=== PATIENT | female | born 1965 | race Caucasian/White ===

== ENCOUNTER 2017-03-19 20:57 | Emergency (ER) | payer MEDICAID, OTHER ==
--- NOTE | 2017-03-19 21:10 | EDM.PDOC ---
ED HPI GENERAL MEDICAL PROBLEM - General Chief Complaint: General Stated Complaint: fall, R) ankle deformation Time Seen by Provider: 03/19/17 21:05 Source of Information: Reports: Patient, Old Records ([facility] chart/EMR), Other (Family friend) History Limitations: Reports: Intoxication (Mild to moderate) - History of Present Illness INITIAL COMMENTS - FREE TEXT/NARRATIVE: Patient was brought to the emergency room via private automobile by her friend for evaluation of severe 10/10 right ankle pain, which resulted secondary to a fall at her friend's home at about 20:15. She apparently tripped over a dog leash and heard her bones crack with additional nonspecific mid right anterior tibial discomfort. She denies any head injury, loss of consciousness, headaches , visual changes, change in mental status, nausea/emesis, neck/back pain, paresthesias, neurological deficits, or other complaints or injuries. Her last oral solid intake was at about 15:00 hours this afternoon with the patient admitting to drinking at least 3 mixed drinks and 3 beers shortly prior to arrival. Patient did apply ice packs at home. The patient also denies any recent fever, cough, wheezing, dyspnea, etc.. Onset: Today, Sudden Onset Date: 03/19/17 Onset Time: 20:15 Duration: Constant Location: Reports: Lower Extremity, Right. Denies: Head, Face, Neck, Chest, Abdomen, Back, Pelvis, Upper Extremity, Left, Upper Extremity, Right, Lower Extremity, Left, Radiates to Quality: Reports: Ache, Sharp, Stabbing Severity: Severe Improves with: Reports: Rest Worsens with: Reports: Movement Context: Reports: Trauma (As above) Associated Symptoms: Denies: Confusion, Chest Pain, Cough, cough w sputum, Diaphoresis, Fever/Chills, Headaches, Loss of Appetite, Nausea/Vomiting, Rash, Seizure, Shortness of Breath, Syncope, Weakness Treatments WINCH RUNNER: Reports: Cold Therapy, Other (see below) Other Treatments WINCH RUNNER: elevation of extremity Right Ankle Pain Score (Numeric/FACES): 10 - Related Data Allergies Allergy/AdvReac Type Severity Reaction Status Date / Time No Known Allergies Allergy Verified 09/30/13 11:49 Home Meds: Home Meds Omeprazole 20 mg PO DAILY 03/19/17 [History] clonazePAM [Clonazepam] 1 mg PO DAILY 03/19/17 [History] Past Medical History HEENT History: Reports: Allergic Rhinitis. Denies: Cataract, Glaucoma, Hard of Hearing, Impaired Vision, Macular Degeneration, Retinal Detachment Cardiovascular History: Reports: Hypertension, Other (See Below). Denies: Afib , Aneurysm, Arrhythmia, Blood Clots/VTE/DVT, CAD, Heart Failure, Heart Murmur, High Cholesterol, [place], Syncope Other Cardiovascular History: Hypertension not currently treated, patient is uncertain about her cholesterol status Respiratory History: Reports: None, Bronchitis, Recurrent, COPD, Pneumonia, Recurrent, Other (See Below). Denies: Asthma, Intubation, Previous, PE, Pneumothorax, Sleep Apnea Other Respiratory History: COPD by physical exam likely secondary to tobacco use Gastrointestinal History: Reports: Gastritis, GI Bleed, Hepatitis, PUD, Other ( See Below). Denies: Celiac Disease, Cholelithiasis, Chronic Constipation, Chronic Diarrhea, GERD, Hiatal Hernia, Inflammatory Bowel Disease, Irritable Bowel Syndrome, Jaundice, Pancreatitis Other Gastrointestinal History: History of gastric ulcer in her 20s, history of LFTs elevation Genitourinary History: Reports: None. Denies: Acute Renal Failure, Chronic Renal Insuffiency, Renal Calculus, Retention, Urinary, STD, Urinary Incontinence , UTI, Recurrent PREPRESS SPECIALIST History: Reports: . Denies: Dysfunctional Uterine Bleeding, Endometriosis, Fibroids, PID, Spontaneous : 2 Para: 2 LMP (Approximate): Menopausal (Since age 31) Musculoskeletal History: Reports: Arthritis, Back Pain, Chronic, Fracture, Osteoarthritis, Other (See Below). Denies: Amputation, Gout, Neck Pain, Chronic , RA, SLE Other Musculoskeletal History: Left shoulder fracture in about 2013, scoliosis Neurological History: Reports: None. Denies: Alzheimers Disease, Cerebral Aneurysms, Concussion, CVA, Headaches, Chronic, Head Trauma, Migraines, MS, Parkinson's, Seizure, TIA Psychiatric History: Reports: Anxiety, Depression, Panic Attack. Denies: Abuse , Victim of, ADD, ADHD, Addiction, Psych Hospitalization(s), PTSD, Suicide Attempt, Suicidal Ideation Endocrine/Metabolic History: Denies: Diabetes, Type I, Diabetes, Type II, Hypothyroidism, IDDM Hematologic History: Denies: Anemia, Blood Transfusion(s), Iron Deficiency Immunologic History: Denies: AIDS, HIV, SLE Oncologic (Cancer) History: Reports: None. Denies: Basal Cell Carcinoma, Cervix , Hodgkin's Lymphoma, Lymphoma, Malignant Melanoma, Non-Hodgkin's Lymphoma, Squamous Cell Carcinoma Dermatologic History: Reports: None. Denies: Eczema, Psoriasis - Infectious Disease History Infectious Disease History: Reports: Chicken Pox. Denies: C-Difficile, Hepatitis B, Hepatitis C, Hepatitis non A,B,C, Measles, Meningitis, Mononucleosis, MRSA, Mumps, Pertussis (Whooping Cough), Rheumatic Fever, Rubella , Scarlet Fever, Shingles, VRE - Past Surgical History Head Surgeries/Procedures: Reports: None HEENT Surgical History: Reports: Adenoidectomy, Oral Surgery, Tonsillectomy, Other (See Below). Denies: Eye Surgery, Laser Surgery, LASIK, Myringotomy w Tube(s), Naso-Sinus Surgery Other HEENT Surgeries/Procedures: Tonsillectomy and adenoidectomy at about age 11, Boring teeth extraction 4 at age 25 Cardiovascular Surgical History: Reports: None. Denies: Varicose, Vascular Surgery Respiratory Surgical History: Reports: None. Denies: Lung Biopsies, Thoracentesis GI Surgical History: Reports: None. Denies: Appendectomy, Cholecystectomy, Colonoscopy, EGD, Hernia, Abdominal, Hernia, Inguinal, Hernia Repair/Other Female Surgical History: Reports: Breast Biopsy. Denies: Section, D &C, Hysterectomy, Tubal Ligation Endocrine Surgical History: Reports: None. Denies: Thyroid Biopsy Neurological Surgical History: Reports: None. Denies: C-Spine, Discectomy, Laminectomy, Lumbar Spine, Spinal Fusion, Vertebroplasty Musculoskeletal Surgical History: Reports: None. Denies: Arthroscopic Procedure , Carpal Tunnel, Ganglion Cyst, Joint Replacement, ORIF, Shoulder Surgery Oncologic Surgical History: Reports: None Dermatological Surgical History: Reports: None - Past Imaging History Past Imaging History: Reports: None Social & Family History - Tobacco Use Smoking Status *Q: Current Every Day Smoker Tobacco Use Within Last Twelve Months: Cigarettes Years of Tobacco use: 35 (Started at age 16) Packs/Tins Daily: 1.5 (Maximum use 2 packs per day) Smoking Cessation Information Provided To Patient: Yes Second Hand Smoke Exposure: Yes Source of Second Hand Smoke Exposure: Boyfriend smokes Second Hand Smoke Education Provided: Yes - Caffeine Use Caffeine Use: Reports: Soda (1 soda per day). Denies: Coffee, Energy Drinks, Tea - Alcohol Use Alcohol Use History: Yes Days Per Week of Alcohol Use: 7 (No previous DWIs, problems with alcohol abuse, etc.) Number of Drinks Per Day: 3 (Usually beer or mixed drinks) Total Drinks Per Week: 21 Date of Last Drink: 03/19/17 Time of Last Drink: 20:15 Alcohol Use in Last Twelve Months: Yes - Recreational Drug Use Recreational Drug Use: Yes Drug Use in Last 12 Months: Yes Recreational Drug Type: Reports: Marijuana/Hashish (One half joint once week starting at age 16). 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 Denies: Fever, Chills, Weakness, Fatigue , Night Sweats, Diaphoresis, Decreased Appetite, Weight Loss, Weight Gain HEENT: Reports: No Symptoms. Denies: Contact Lenses, Dental Pain, Ear Discharge , Ear Pain, Eye Pain, Glasses, Hearing Loss, Rhinitis, Throat Pain, Throat Swelling, Vertigo, Vision Change Respiratory: Reports: No Symptoms. Denies: Shortness of Breath, Wheezing, Pleuritic Chest Pain, Cough Cardiovascular: Reports: No Symptoms. Denies: Chest Pain, Blood Pressure Problem, Claudication, Dyspnea on Exertion, Edema, Lightheadedness, Orthopnea, Palpitations, PND, Syncope Endocrine: Reports: No Symptoms. Denies: Fatigue GI/Abdominal: Reports: No Symptoms. Denies: Abdominal Pain, Anorexia, Black Stool, Bloody Stool, Constipation, Diarrhea, Decreased Appetite, Difficulty Swallowing, Distension, Flatus, Hematemesis, Hematochezia, Melena, Nausea, Stool Incontinence, Vomiting : Reports: No Symptoms. Denies: Discharge, Dysuria, Flank Pain, Frequency, Hematuria, Incontinence, Pain, Urgency, Urinary Retention Musculoskeletal: Reports: Leg Pain (Right lower leg pain), Joint Pain (Right ankle), Joint Swelling (Right ankle). Denies: Neck Pain, Shoulder Pain, Arm Pain, Back Pain, Muscle Pain, Muscle Stiffness Skin: Reports: No Symptoms. Denies: Diaphoresis, Wound Neurological: Reports: No Symptoms, Difficulty Walking (Secondary to ankle fracture). Denies: Confusion, Dizziness, Headache, Numbness, Paresthesia, Seizure, Syncope, Tingling, Trouble Speaking, Weakness, Change in Speech Psychiatric: Denies: Agitation, Anxiety, Confusion ED EXAM, GENERAL - Physical Exam Exam: See Below Exam Limited By: No Limitations General Appearance: Alert, WD/WN, No Apparent Distress, Anxious (Mild), Other ( [id number] intoxication) Head: Atraumatic, Normocephalic. No: Facial Swelling, Facial Tenderness, Sinus Tenderness Neck: Normal Inspection, Supple, Non-Tender, Full Range of Motion. No: Carotid Bruit, Lymphadenopathy (L), Lymphadenopathy (R), Thyromegaly Respiratory/Chest: No Accessory Muscle Use, Chest Non-Tender, Rhonchi (Mild to moderate diffuse bilateral), Wheezing (Mild to moderate diffuse bilateral). No : Rales, Stridor, Retractions Cardiovascular: Normal Peripheral Pulses, Regular Rate, Rhythm, No Edema, No Gallop, No JVD, No Murmur, No Rub. No: Gallop/S3, Gallop/S4, Friction Rub Peripheral Pulses: 4+: Radial (L), Radial (R), Dorsalis Pedis (L), Dorsalis Pedis (R) GI/Abdominal: Normal Bowel Sounds, Soft, Non-Tender, No Organomegaly, No Distention, No Abnormal Bruit, No Mass. No: Guarding (Female) Exam: Deferred Rectal (Female) Exam: Deferred Back Exam: Normal Inspection, Full Range of Motion. No: CVA Tenderness (L), CVA Tenderness (R), Muscle Spasm Extremities: No Pedal Edema, Normal Capillary Refill, Joint Swelling (Moderate right ankle effusion and deformities), Limited Range of Motion (Moderate localized palpation pain over the right ankle with unstable joint). No: Scotty' s Sign Neurological: Alert, Oriented, CN II-XII Intact, Normal Cognition, Normal Gait, Normal Reflexes (Negative Babinski's), No Motor/Sensory Deficits, Other (Mild to moderate intoxication) Psychiatric: Anxious (Mild), Depressed Mood (Borderline) Skin Exam: Warm, Dry, Intact, Normal Color, No Rash, Tattoo(s). No: Diaphoretic , Wound/Incision Lymphatic: No Adenopathy ED GENERAL MEDICAL PROCEDURES - Splinting Right Lower Extremity Pre-procedure NV status: Normal Post-procedure NV status: Normal Splint Material: Other (one 6" x 30" padded preformed fiberglass splint with an additional 4" x 2 15 inch similar splint secured with 2 six-inch Kwasi wraps) Splint Design: Stirrup, Posterior Applied & Form Fitted By: Provider Provider Post-Splint Application NV Check: NV Status Normal, Good Position Complications: No Course - Vital Signs Last Recorded V/S: Last Vital Signs Temp 37.2 C 03/19/17 21:04 Pulse 106 H 03/19/17 21:04 Resp 18 03/19/17 21:04 BP 130/75 03/19/17 21:42 Pulse Ox 98 03/19/17 21:04 Vital Signs - 24 hr 03/19/17 03/19/17 21:04 21:42 Temperature [ 37.2 C Temporal] Pulse, 106 H Peripheral [ Right Pulse Oximetry] Respiratory 18 Rate Blood Pressure 161/103 H 130/75 [Right Upper Arm] O2 Sat by Pulse 98 Oximetry - Orders/Labs/Meds Orders: Active Orders 24 hr Category Date Time Status Ankle Min 3V Rt [CR] Stat Exams 03/19/17 21:13 Taken Tibia Fibula Rt [CR] Stat Exams 03/19/17 21:12 Taken Durable Medical Equipment for Discharge [DME for Oth 03/19/17 22:09 Ordered Discharge] [COMM] Routine Obtain Past Medical Record [OM.PC] Routine Oth 03/19/17 21:12 Active Labs: Laboratory Tests 03/19/17 03/19/17 03/19/17 Range/Units 21:20 21:20 21:20 WBC 6.3 (4.0-10.2) K/uL RBC 4.57 (3.77-5.09) M/uL Hgb 14.6 D (11.7-15.5) g/dL Hct 42.6 (34.0-46.0) % MCV 93.2 (84.0-98.0) fL MCH 31.9 (28.2-33.3) pg MCHC 34.3 (31.7-36.0) g/dL RDW 11.5 (11.2-14.1) % Plt Count 116 L (150-350) K/uL Neut % (Auto) 50.2 (45.0-80.0) % Lymph % (Auto) 38.2 (10.0-50.0) % [place] % (Auto) 9.4 (2.0-14.0) % Eos % (Auto) 1.4 (0.0-5.0) % Baso % (Auto) 0.8 (0.0-2.0) % Neut # (Auto) 3.14 (1.40-7.00) K/uL Lymph # (Auto) 2.39 (0.50-3.50) K/uL [place] # (Auto) 0.59 (0.00-1.00) K/uL Eos # (Auto) 0.09 (0.00-0.50) K/uL Baso # (Auto) 0.05 (0.00-0.20) K/uL PT (9.8-11.7) SEC INR APTT (23.5-30.0) SEC Sodium 135 L (136-145) mmol/L Potassium 3.5 (3.5-5.1) mmol/L Chloride 100 (98-107) mmol/L Carbon Dioxide 26.6 (21.0-32.0) mmol/L BUN 10 (7-18) mg/dL Creatinine 0.65 (0.51-1.17) mg/dL Est Cr Clr Drug Dosing 96.93 mL/min Estimated GFR (MDRD) > 60 mL/min Glucose 88 (74-106) mg/dL Lactic Acid (0.4-2.0) mmol/L Calcium 8.6 (8.5-10.1) mg/dL Total Bilirubin 0.2 (0.2-1.0) mg/dL AST 25 (15-37) U/L ALT 35 (12-78) U/L Alkaline Phosphatase 91 (46-116) IU/L Total Protein 7.3 (6.4-8.2) g/dL Albumin 3.6 (3.4-5.0) g/dL Ethyl Alcohol 0.142 H (0.000-0.080) g/dL 03/19/17 03/19/17 Range/Units 21:20 21:20 WBC (4.0-10.2) K/uL RBC (3.77-5.09) M/uL Hgb (11.7-15.5) g/dL Hct (34.0-46.0) % MCV (84.0-98.0) fL MCH (28.2-33.3) pg MCHC (31.7-36.0) g/dL RDW (11.2-14.1) % Plt Count (150-350) K/uL Neut % (Auto) (45.0-80.0) % Lymph % (Auto) (10.0-50.0) % [place] % (Auto) (2.0-14.0) % Eos % (Auto) (0.0-5.0) % Baso % (Auto) (0.0-2.0) % Neut # (Auto) (1.40-7.00) K/uL Lymph # (Auto) (0.50-3.50) K/uL [place] # (Auto) (0.00-1.00) K/uL Eos # (Auto) (0.00-0.50) K/uL Baso # (Auto) (0.00-0.20) K/uL PT 10.8 (9.8-11.7) SEC INR 1.0 APTT 24.8 (23.5-30.0) SEC Sodium (136-145) mmol/L Potassium (3.5-5.1) mmol/L Chloride (98-107) mmol/L Carbon Dioxide (21.0-32.0) mmol/L BUN (7-18) mg/dL Creatinine (0.51-1.17) mg/dL Est Cr Clr Drug Dosing mL/min Estimated GFR (MDRD) mL/min Glucose (74-106) mg/dL Lactic Acid 2.3 H (0.4-2.0) mmol/L Calcium (8.5-10.1) mg/dL Total Bilirubin (0.2-1.0) mg/dL AST (15-37) U/L ALT (12-78) U/L Alkaline Phosphatase (46-116) IU/L Total Protein (6.4-8.2) g/dL Albumin (3.4-5.0) g/dL Ethyl Alcohol (0.000-0.080) g/dL Meds: Medications Discontinued Medications Generic Name Dose Route Start Last Admin Trade Name Freq PRN Reason Stop Dose Admin Meperidine HCl 50 mg 03/19/17 21:13 03/19/17 21:34 Demerol IM 03/19/17 21:14 50 mg ONETIME ONE Administration Promethazine HCl 50 mg 03/19/17 21:14 03/19/17 21:33 Phenergan IM 03/19/17 21:15 50 mg ONETIME ONE Administration - Radiology Interpretation Free Text/Narrative:: X-rays of the right tibia and fibula, 2 views, shows evidence of ankle fracture , however no evidence of midshaft fractures X-rays of the right ankle, 3 views, shows evidence of moderately angulated and displaced trimalleolar fracture affecting the ankle mortise with additional 2 nonspecific cystic lesions over the distal aspect of the distal tibia Departure - Departure Time of Disposition: 22:25 Disposition: DC/Tfer to [facility] 02 Condition: good Clinical Impression: Intoxication, Tobacco abuse counseling, Peptic ulcer disease, Lactic acid increased, Mixed anxiety depressive disorder, Illicit drug use, continuous, LFT elevation Trimalleolar fracture of right ankle Qualifiers: Encounter type: initial encounter Fracture type: closed Qualified Code(s): S82.851A - Displaced trimalleolar fracture of right lower leg, initial encounter for closed fracture COPD (chronic obstructive pulmonary disease) Qualifiers: COPD type: emphysema Emphysema type: panlobular Qualified Code(s): J43.1 - Panlobular emphysema Osteoarthritis Qualifiers: Osteoarthritis location: multiple joints Osteoarthritis type: primary Qualified Code(s): M15.0 - Primary generalized (osteo)arthritis Hypertension Qualifiers: Hypertension type: essential hypertension Qualified Code(s): I10 - Essential ( primary) hypertension - Discharge Information Instructions: Cast or Splint Care, [id number], Ankle Fracture, Chronic Obstructive Pulmonary Disease, [id number] Forms: ED Department Discharge, Interfacility Transfer JOAQUIN Additional Instructions: 1. Have a friend or family member drive you to the [facility] in [place] ERNIE with strict nothing to eat or drink until otherwise directed by accepting physician 2. Stop all tobacco use ERNIE as directed/per provided information and consider contacting [employer]uit LIne, etc.. 3. Leg elevation and ice packs during transfer - Problem List & Annotations (1) Trimalleolar fracture of right ankle SNOMED Code(s): 741623402 Code(s): S82.851A - DISPLACED TRIMALLEOLAR FRACTURE OF RIGHT LOWER LEG, INIT Status: Acute Priority: High Onset Date: 03/19/17 Annotation/Comment:: Telephone consultation initially with Dr. Luz, orthopedic surgeon at [facility], at 20:40 hours, who agrees to evaluate and admit the patient for probable right ankle surgery, however he wishes that the patient be admitted through the hospitalist secondary to the patient's very limited previous medical care. Subsequent telephone consultation at 20:[address] Layne, hospitalist, who does accept the patient for direct admission. No further treatment recommendations given. She was placed in a short leg posterior plantar splint with stirrup with crutches already provided. Private transport ERNIE as per discharge instructions. Qualifiers: Encounter type: initial encounter Fracture type: closed Qualified Code(s) : S82.851A - Displaced trimalleolar fracture of right lower leg, initial encounter for closed fracture (2) Lactic acid increased SNOMED Code(s): 82583638 Code(s): E87.2 - ACIDOSIS Status: Acute Priority: High Onset Date: 04/28 Annotation/Comment:: No clinical evidence of sepsis or acidosis. Consider repeated lactic acid level in 6 hours (3) COPD (chronic obstructive pulmonary disease) SNOMED Code(s): 61474908 Code(s): J44.9 - CHRONIC OBSTRUCTIVE PULMONARY DISEASE, UNSPECIFIED Status : Chronic Priority: Medium Annotation/Comment:: Probable moderate COPD by clinical exam with no recent history of fever or bronchitic type symptoms. Patient would benefit from tobacco cessation and possible PFTs Qualifiers: COPD type: emphysema Emphysema type: panlobular Qualified Code(s): J43.1 - Panlobular emphysema (4) Osteoarthritis SNOMED Code(s): 468485708 Code(s): M19.90 - UNSPECIFIED OSTEOARTHRITIS, UNSPECIFIED SITE Status: Chronic Priority: Medium Annotation/Comment:: Otherwise stable by history Qualifiers: Osteoarthritis location: multiple joints Osteoarthritis type: primary Qualified Code(s): M15.0 - Primary generalized (osteo)arthritis (5) Hypertension SNOMED Code(s): 10051979 Code(s): I10 - ESSENTIAL (PRIMARY) HYPERTENSION Status: Chronic Priority : Medium Annotation/Comment:: Long history of apparent hypertension with no previous medical therapy. Blood pressure improved prior to transfer with no medical treatment other than pain medications as above. Continue to observe closely by accepting physicians with update of routine healthcare advisable Qualifiers: Hypertension type: essential hypertension Qualified Code(s): I10 - Essential (primary) hypertension (6) Intoxication SNOMED Code(s): 33722994 Code(s): TYZ8326 - Status: Acute Priority: High Onset Date: 03/19/17 Annotation/Comment:: Mild to moderate intoxication today. Based on clinical impression possible history of alcohol abuse with additional marijuana abuse as below. Note history of previous LFTs elevation of unknown etiology possibly secondary to her alcohol use versus fatty liver. Coagulation studies were normal today with only mild thrombocytopenia noted (7) Tobacco abuse counseling SNOMED Code(s): 274689424, 595389035, 155653674 Code(s): Z71.6 - TOBACCO ABUSE COUNSELING Status: Chronic Priority: Medium Annotation/Comment:: Tobacco cessation strongly encouraged with patient not interested in having information (8) Peptic ulcer disease SNOMED Code(s): 70608706 Code(s): K27.9 - PEPTIC ULC, SITE UNSP, UNSP AC OR CHR, W/O HEMOR OR PERF Status: Chronic Priority: Medium Annotation/Comment:: Stable with current Prilosec therapy (9) Mixed anxiety depressive disorder SNOMED Code(s): 272732357 Code(s): F41.8 - OTHER SPECIFIED ANXIETY DISORDERS Status: Chronic Priority: Medium Annotation/Comment:: Stable by patient history (10) Illicit drug use, continuous SNOMED Code(s): 030872561 Code(s): F19.90 - OTHER PSYCHOACTIVE SUBSTANCE USE, UNSPECIFIED, UNCOMPLICATED Status: Chronic Priority: Medium Annotation/Comment:: Discontinuation of illicit drug use recommended initially in light of her probable COPD and anxiety depression disorder (11) LFT elevation SNOMED Code(s): 602909741 Code(s): R79.89 - OTHER SPECIFIED ABNORMAL FINDINGS OF BLOOD CHEMISTRY Status: Chronic Priority: Medium Current Visit: Yes Annotation/Comment:: LFTs are normal today although history of distant LFTs elevation as above - Problem List Review Problem List Initiated/Reviewed/Updated: Yes - My Orders Last 24 Hours: My Active Orders 03/19/17 21:12 Tibia Fibula Rt [CR] Stat Obtain Past Medical Record [OM.PC] Routine 03/19/17 21:13 Ankle Min 3V Rt [CR] Stat 03/19/17 22:09 Durable Medical Equipment for Discharge [DME for Discharge] [COMM] Routine - Assessment/Plan Last 24 Hours: My Active Orders 03/19/17 21:12 Tibia Fibula Rt [CR] Stat Obtain Past Medical Record [OM.PC] Routine 03/19/17 21:13 Ankle Min 3V Rt [CR] Stat 03/19/17 22:09 Durable Medical Equipment for Discharge [DME for Discharge] [COMM] Routine Assessment:: As above Plan: As above. Extensive precautions were given to the patient and her friend, who are in agreement with the treatment plan. See Patient Instructions for further treatment and plan.
[2017-03-19] MEDS ORDERED: Meperidine PF 50 MG/ML Syringe IM ONE (21:13)
[2017-03-19] MEDS ORDERED: Promethazine 25 MG/ML SDV IM ONE (21:14)
[2017-03-19 21:40] LABS: CHLORIDE,CL 100 mmol/L (98-107); SODIUM,NA 135 mmol/L (136-145)
[2017-03-19 21:42] VITALS: BP 130/75
== END 2017-03-19 22:30 ==
LOC: LL.ED 20:57
DX: S82.851A Displaced trimalleolar fracture of right lower leg, initial encounter for closed fracture (principal); J43.1 Panlobular emphysema; M15.0 Primary generalized (osteo)arthritis; I10 Essential (primary) hypertension; F41.8 Other specified anxiety disorders; F19.90 Other psychoactive substance use, unspecified, uncomplicated; R79.89 Other specified abnormal findings of blood chemistry; Z71.6 Tobacco abuse counseling; F17.210 Nicotine dependence, cigarettes, uncomplicated; Z98.890 Other specified postprocedural states; Z79.899 Other long term (current) drug therapy; W01.0XXA Fall on same level from slipping, tripping and stumbling without subsequent striking against object, initial encounter
CPT/HCPCS: 29515; 36415; 73590; 73610; 80053; 83605; 85025; 85610; 85730; 96372; 99285; G0480; J2175; J2550

== ENCOUNTER 2018-05-28 08:30 | Day surgery (SDC) | payer MEDICAID ==
[~2018-05-28 08:30] MED LIST: Lactated Ringers 1,000 ML IV SCH; Sodium Chloride 0.9% 10 ML Syringe FLUSH PRN
[2018-05-28] MEDS ORDERED: Lactated Ringers 1,000 ML IV SCH (11:00)
[2018-05-28] MEDS ORDERED: Sodium Chloride 0.9% 10 ML Syringe FLUSH PRN (11:00)
--- NOTE | 2018-05-28 12:52 | PCM.PN ---
- General Info Date of Service: 05/28/18 - Review of Systems Systems Review Comment:: 53-year-old female referred for her initial screening colonoscopy. She is medically stable to proceed today. There is been no recent change in her health status or significant change from her recent history and physical. I discussed the proposed colonoscopy. Risks such as but not limited to bleeding and GI injury reviewed.She appears to understand and agrees to proceed. - Patient Data Vitals - Most Recent: Last Vital Signs Temp 97.6 F 05/28/18 11:48 Pulse 77 05/28/18 11:48 Resp 18 05/28/18 11:48 BP 180/122 H 05/28/18 11:48 Pulse Ox 95 05/28/18 11:48 Weight - Most Recent: 68.152 kg Med Orders - Current: Current Medications Lactated Ringer's (Ringers, Lactated) 1,000 mls @ 125 mls/hr IV ASDIRECTED DAVIDSON Sodium Chloride (Saline Flush) 10 ml FLUSH ASDIRECTED PRN PRN Reason: Keep Vein Open - Problem List Review Problem List Initiated/Reviewed/Updated: Yes - My Orders Last 24 Hours: My Active Orders 05/28/18 11:00 Patient Status [ADT] Routine Peripheral IV Care [RC] . DIRECTED Verify Patient Consent Obtain [RC] ASDIRECTED Lactated Ringers [Ringers, Lactated] 1,000 ml IV ASDIRECTED Sodium Chloride 0.9% [Saline Flush] 10 ml FLUSH ASDIRECTED PRN Peripheral IV Insertion Adult [OM.PC] Routine - Assessment Assessment:: colon cancer screening - Plan Plan:: colonoscopy
[2018-05-28] MEDS ORDERED: fentaNYL 100 MCG/2 ML SDV ONE (12:57)
[2018-05-28] MEDS ORDERED: Midazolam 1 MG/ML 2 ML SDV ONE (12:57)
[2018-05-28] MEDS ORDERED: Propofol 200 MG/20 ML SDV ONE (12:58)
--- NOTE | 2018-05-28 13:44 | PCM.OPNOTE ---
- General Post-Op/Procedure Note Date of Surgery/Procedure: 05/28/18 Operative Procedure(s): colonoscopy with polypectomy and fulguration Findings: small colon polyps Pre Op Diagnosis: colon cancer screening Post-Op Diagnosis: colon polyps Anesthesia Technique: MAC Primary Surgeon: Venancio Moralez Pathology: sigmoid colon polyp Output, Urine Amount: 0 EBL in mLs: 0 Complications: None Condition: Good
[2018-05-28 19:32] VITALS: BP 173/97
--- NOTE | 2018-05-29 11:30 | OR ---
Date of Procedure: 05/28/2018 REFERRING PROVIDER: Mirna Weston PA-C PREOPERATIVE DIAGNOSIS: Colon cancer screening. POSTOPERATIVE DIAGNOSIS: Colon polyps. OPERATIONS PERFORMED: Colonoscopy with polypectomy and fulguration. INDICATIONS FOR SURGERY: This 53-year-old female is seen today for her initial screening colonoscopy. She denies any close relatives with known colon cancer and also denies any recent change in bowel pattern. FINDINGS: During the exam, 2 polyps were noted. There was a 7-mm sessile polyp noted in the sigmoid colon, 20 cm from the anal verge, and a 3-mm polyp in the transverse colon. The remainder of the colon appeared normal. DESCRIPTION OF PROCEDURE: The patient was taken to the operating room. She was given intravenous sedation, and with her in the left lateral decubitus position, digital rectal exam was performed showing no rectal masses. The Olympus colonoscope was inserted into the rectum. Retroflexed examination of the rectal canal was performed. The scope was advanced to the sigmoid region with the above-described polyp was identified and it was removed with a cautery snare and retrieved into a polyp trap. The scope was then further advanced through the entire length of the colon until the cecum was reached. Cecal acquisition was confirmed by noting the normal internal cecal anatomy including the appendiceal orifice and ileocecal valve. The light was also noted to transilluminate the abdominal wall in the right lower quadrant. After examining the cecum, the scope was slowly withdrawn sequentially re-examining the colonic segments. In the transverse colon, another very small polyp was identified and this was destroyed with fulguration using the cautery snare. The scope was further withdrawn until the entire colon and rectum had been fully examined. The scope was removed and the patient was taken from the operating room in satisfactory condition. ESTIMATED BLOOD LOSS: Zero. COMPLICATIONS: None. PROGNOSIS: Good. ABIGAIL Moralez MD /[id number]
== END 2018-05-28 14:48 | disposition home or self-care (01) ==
LOC: LL.SDS 08:30
PROVIDERS: ATTEND Surgery
DX: Z12.11 Encounter for screening for malignant neoplasm of colon (principal); D12.5 Benign neoplasm of sigmoid colon; K63.5 Polyp of colon; I10 Essential (primary) hypertension; G47.00 Insomnia, unspecified; E78.2 Mixed hyperlipidemia; K29.70 Gastritis, unspecified, without bleeding; F41.8 Other specified anxiety disorders; Z79.899 Other long term (current) drug therapy
CPT/HCPCS: J2250; J2704; J3010

== ENCOUNTER 2020-07-26 11:12 | Emergency (ER) | payer MEDICAID ==
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
[2020-07-26] MEDS: Bacitracin/Neomycin/Polymyxin B Oint 0.9 GM U/D Packet TOP ONE (11:44)
[2020-07-26] MEDS: Diphtheria,Pertussis(Acell),Tetanus Vaccine 0.5 ML Syringe IM ONE (11:46)
[2020-07-26] MEDS: FLU Vacc QS2020-21 36MOS UP/PF 60 MCG/0.5 ML Syringe IM ONE (11:46)
[2020-07-26 11:50] VITALS: BP 113/71; PULSE 71
== END 2020-07-26 13:33 | disposition home or self-care (01) ==
LOC: LL.ED 11:12
DX: S01.311A Laceration without foreign body of right ear, initial encounter (principal); F41.8 Other specified anxiety disorders; Z71.6 Tobacco abuse counseling; F17.210 Nicotine dependence, cigarettes, uncomplicated; F10.129 Alcohol abuse with intoxication, unspecified; M19.90 Unspecified osteoarthritis, unspecified site; E78.5 Hyperlipidemia, unspecified; J43.1 Panlobular emphysema; I10 Essential (primary) hypertension; J44.9 Chronic obstructive pulmonary disease, unspecified; K21.9 Gastro-esophageal reflux disease without esophagitis; F41.9 Anxiety disorder, unspecified; F32.9 Major depressive disorder, single episode, unspecified; Z91.013 Allergy to seafood; Z23 Encounter for immunization; W01.0XXA Fall on same level from slipping, tripping and stumbling without subsequent striking against object, initial encounter; Y92.009 Unspecified place in unspecified non-institutional (private) residence as the place of occurrence of the external cause
CPT/HCPCS: 12013; 90471; 90686; 90715; 99283-25; G0008; J2001

== ENCOUNTER 2023-07-20 15:04 | Emergency (ER) | payer MEDICAID ==
[2023-07-20] MEDS ORDERED: Acetaminophen/oxyCODONE 325-5 MG Tab PO ONE (15:30)
[2023-07-20] MEDS ORDERED: Take Home: Acetaminophen/HYDROcodone 325-10 MG, 5 Tab Pack PO ONE (16:07)
[2023-07-20 16:20] VITALS: BP 120/84; PULSE 74
== END 2023-07-20 16:35 | disposition home or self-care (01) ==
LOC: LL.ED 15:04
DX: S49.002A Unspecified physeal fracture of upper end of humerus, left arm, initial encounter for closed fracture (principal); F17.210 Nicotine dependence, cigarettes, uncomplicated; J44.9 Chronic obstructive pulmonary disease, unspecified; I10 Essential (primary) hypertension; K21.9 Gastro-esophageal reflux disease without esophagitis; Z79.899 Other long term (current) drug therapy; Z91.048 Other nonmedicinal substance allergy status; W06.XXXA Fall from bed, initial encounter
CPT/HCPCS: 73030-LT; 99283; 99284; A9270-GY

== ENCOUNTER 2024-12-07 11:02 | Emergency (ER) | payer MEDICAID ==
[2024-12-07 11:08] VITALS: BP 162/95; PULSE 82
[2024-12-07 11:23] LABS: BASOPHILS ABSOLUTE AUTO 0.02 K/uL (0.00-0.20); BASOPHILS PERCENT AUTO 0.2 % (0.0-2.0); EOSINOPHILS ABSOLUTE AUTO 0.06 K/uL (0.00-0.50); EOSINOPHILS PERCENT AUTO 0.5 % (0.0-5.0); HEMATOCRIT 43.9 % (34.0-46.0); HEMOGLOBIN 15.3 g/dL (11.7-15.5); IMMATURE GRAN ABSOLUTE AUTO 0.01 10^3/uL (0.00-0.04); IMMATURE GRAN PERCENT AUTO 0.1 % (0.0-0.4); LYMPHOCYTES ABSOLUTE AUTO 3.07 K/uL (0.50-3.50); LYMPHOCYTES PERCENT AUTO 27.8 % (10.0-50.0); MEAN CORPUSCULAR HEMOGLOBIN 30.7 pg (28.2-33.3); MEAN CORPUSCULAR HGB CONC 34.9 g/dL (31.7-36.0); MEAN CORPUSCULAR VOLUME 88.2 fL (84.0-98.0); MONOCYTES PERCENT AUTO 10.9 % (2.0-14.0); NEUTROPHILS ABSOLUTE AUTO 6.69 K/uL (1.40-7.00); NEUTROPHILS PERCENT AUTO 60.5 % (45.0-80.0); PLATELET COUNT,PLT 190 K/uL (150-350); RED BLOOD CELL COUNT 4.98 M/uL (3.77-5.09); RED CELL DISTRIBUTION WIDTH 11.7 % (11.2-14.1); WHITE BLOOD CELL COUNT,WBC 11.1 K/uL (4.0-10.2)
[2024-12-07 11:47] LABS: ALANINE AMINOTRANSFERASE,ALT 38 U/L (12-78); ALBUMIN 4.1 g/dL (3.4-5.0); ALKALINE PHOSPHATASE 154 IU/L (46-116); ANION GAP 11.7 meq/L (7-15); ASPARTATE AMNIOTRANSFERASE,AST 34 U/L (15-37); BILIRUBIN TOTAL 0.6 mg/dL (0.2-1.0); BLOOD UREA NITROGEN,BUN 11 mg/dL (7-18); CALCIUM 9.4 mg/dL (8.5-10.1); CARBON DIOXIDE,CO2 27.3 mmol/L (21.0-32.0); CHLORIDE,CL 100 mmol/L (98-107); CREATININE 1.01 mg/dL (0.51-1.17); ETHANOL BLOOD MEDICAL 0.003 g/dL (0.000-0.080); GLUCOSE RANDOM 124 mg/dL (70-99); POTASSIUM,K 4.2 mmol/L (3.5-5.1); PROTEIN TOTAL,TP 7.9 g/dL (6.4-8.2); SODIUM,NA 139 mmol/L (136-145)
[2024-12-07 11:49] LABS: ESTIMATED GFR 65 mL/min (>=60)
[2024-12-07] MEDS: traMADol 50 MG Tab PO ONE (12:02)
[2024-12-07 12:16] LABS: APPEARANCE,URINE SLIGHTLY CLOUDY; BILIRUBIN,URINE NEGATIVE (NEGATIVE); COLOR,URINE YELLOW; GLUCOSE,URINE NEGATIVE (NEGATIVE); KETONES,URINE NEGATIVE (NEGATIVE); LEUKOCYTE ESTERASE,URINE TRACE (NEGATIVE); NITRITE,URINE NEGATIVE (NEGATIVE); OCCULT BLOOD,URINE NEGATIVE (NEGATIVE); PH,URINE 5.5 (5.0-9.0); PROTEIN,URINE NEGATIVE (NEGATIVE); UROBILINOGEN,URINE 0.2 E.U./dL (0.2-1.0)
[2024-12-07 12:27] LABS: AMPHETAMINES SCREEN, URINE NEGATIVE (NEGATIVE); BARBITURATE SCREEN,URINE NEGATIVE (NEGATIVE); BENZODIAZEPINES SCREEN,URINE NEGATIVE (NEGATIVE); COCAINE METABOLITES,URINE NEGATIVE (NEGATIVE); EDDP,URINE SCREEN NEGATIVE (NEGATIVE); METHAMPHETAMINES SCREEN, URINE NEGATIVE (NEGATIVE); TCA SCREEN,URINE NEGATIVE (NEGATIVE); THC SCREEN,URINE 50 NG/ML POSITIVE (NEGATIVE)
[2024-12-07 12:28] LABS: AMORPHOUS SEDIMENT,URINE OCCASIONAL /HPF (0/HPF); BACTERIA,URINE RARE /HPF (NONE TO FEW); EPITHELIAL CELLS,URINE MODERATE /LPF; MUCUS,URINE FEW /LPF (NEGATIVE); RBC,URINE 0-5 /HPF
[2024-12-07 12:31] LABS: BUPRENORPHINE SCREEN,URINE NEGATIVE (NEGATIVE); OXYCODONE SCREEN,URINE NEGATIVE (NEGATIVE)
== END 2024-12-07 13:00 | disposition home or self-care (01) ==
LOC: LL.ED 11:02
DX: S52.612A Displaced fracture of left ulna styloid process, initial encounter for closed fracture (principal); S52.502A Unspecified fracture of the lower end of left radius, initial encounter for closed fracture; I10 Essential (primary) hypertension; E78.00 Pure hypercholesterolemia, unspecified; J44.9 Chronic obstructive pulmonary disease, unspecified; Z91.013 Allergy to seafood; Z79.899 Other long term (current) drug therapy; W00.0XXA Fall on same level due to ice and snow, initial encounter; Y93.89 Activity, other specified
CPT/HCPCS: 36415; 73110-LT; 80053; 80305-QW; 80307; 81001; 85025; 87086; 99283; A9270-GY